=== PATIENT | female | born 1975 ===

== ENCOUNTER 2017-03-03 17:50 | Emergency (ER) | payer BC ==
--- NOTE | 2017-03-03 18:50 | ER NURSING DOCUMENTATION ---
Nurse's Notes [facility] Name:Viviane Higgins Age:41 yrs Sex:Female :1975 Arrival Date:03/03/2017 Time:17:50 Bed1 Private MD: Diagnosis:Hand Laceration-3cm length, Simple Surgical Closure (by MD) Presentation: 03/03 18:00 Presenting complaint: Patient states: pt cut her right hand on a tin can. Transition of st care: Home. Complicating Factors: There are no complicating factors for this patient. Notified ED Physician of Dr. Johnson notified. 18:00 Acuity: DEVON 4 st 18:00 Method Of Arrival: Private Vehicle st Triage Assessment: 18:02 General: Appears in no apparent distress, Behavior is cooperative. Pain: Denies pain. st Cardiovascular: No deficits noted. Respiratory: No deficits noted. GI: No deficits noted. Injury Description: Laceration sustained to dorsum of right hand is superficial, 2.6 to 7.5 cm long, not bleeding. Historical: - Allergies: PENICILLINS; - Home Meds: 1. None - PMHx: None; - PSHx: None; - Tetanus: > 10 years. - Ebola Screening: : Patient denies exposure to infectious person. Patient denies travel to an Ebola-affected area in the 21 days before illness onset. . - Social history: Smoking status: Patient states was never smoker of tobacco. Patient uses alcohol occasionally. Patient/guardian denies using marijuana. Screenin:05 Infectious Disease Risk None. Abuse screen: Denies threats or abuse. Denies injuries st from another. Nutritional screening: No deficits noted. Vital Signs: 18:04 BP 137 / 87; Pulse 88; Resp 16; Temp 99.5; Pulse Ox 94% ; Pain 0/10; st ED Course: 17:52 Patient arrived in ED. ama 18:00 Katrin Ghosh, RN is Primary Nurse. st 18:[address] 18:06 Valuables Remains with patient. Ice pack to injury. st 18:35 Damir Johnson MD is Attending Physician. cd 18:47 Assist Provider Assist provider with laceration repair using sutures. Set up tray. st Performed by Damir Johnson MD. Wound care was dressed with bacitracin Flavioliasher Telantonio. 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 st Exp: 02/12/2018. Lot #: [id number]. } Route: IM; Site: right deltoid; 18:48 Follow up: Response: Medication administered at discharge. Outcome: 18:37 Discharge ordered by . alice 18:48 Discharged to home ambulatory. st 18:48 Condition: improved 18:48 Discharge instructions given to patient, Instructed on discharge instructions, follow up and referral plans. wound care. 18:49 Patient [address] the ED[address] st Signatures: Katrin Ghosh RN Damir Spaulding MD MD cd Averdick, Andrew, Reg Reg ama
--- NOTE | 2017-03-03 18:50 | ER PHYSICIAN DOCUMENTATION ---
Physician Documentation [facility] Name:Viviane Higgins Age:41 yrs Sex:Female :1975 Arrival Date:03/03/2017 Time:17:50 Bed1 Private MD: Damir Walsh Disposition: 03/03 18:50 Chart complete. cd Disposition: 03/03/17 18:37 Discharged to Home/Self Care. Impression: Hand Laceration - 3cm length, Simple Surgical Closure (by MD). - Condition is Good. - Discharge Instructions: LACERATION, Hand. - Medical Reconciliation form form. - Follow up: Emergency Department; When: 03/13/2017; Reason: Continuance of care, Staple/Suture removal. - Problem is new. - Symptoms are resolved. - Notes: Sutures out in 10 days on 03/13/2017. Remember Year 2016...your last Tetanus Booster! HPI: 18:00 This 41 yrs old Unknown Female presents to ER via Private Vehicle with complaints of cd Laceration To Hand - RIGHT. 18:00 The patient has a laceration related to: cut on can occurred at home, and there are no cd complicating factors. The injury was accidental, The laceration(s) is(are) located on the dorsum of right hand. Onset: The symptom(s)/episode began/occurred acutely, just prior to arrival. Tetanus status not UTD. Historical: - Allergies: PENICILLINS; - Home Meds: 1. None - PMHx: None; - PSHx: None; - Tetanus: > 10 years. - Ebola Screening: : Patient denies exposure to infectious person. Patient denies travel to an Ebola-affected area in the 21 days before illness onset. . - Social history: Smoking status: Patient states was never smoker of tobacco. Patient uses alcohol occasionally. Patient/guardian denies using marijuana. ROS: 18:10 Skin: Positive for laceration(s), of the dorsum of right hand. cd 18:10 All other systems are negative. Exam: 18:10 Musculoskeletal/extremity: Extremities: grossly normal except: noted in the dorsum of cd right hand: laceration, ROM: no acute changes, Circulation is intact in all extremities. Sensation intact. Tendon exam: specific tendon testing normal through active and passive range of motion 18:10 Constitutional: The patient appears alert, awake, anxious. 18:10 Skin: Appearance: normal except for affected area, injury, laceration(s), the wound is approximately 3 cm(s), with a depth of 0.5 cm(s), of the dorsum of right hand. Vital Signs: 18:04 BP 137 / 87; Pulse 88; Resp 16; Temp 99.5; Pulse Ox 94% ; Pain 0/10; st Laceration: 18:10 Wound Repair of 3cm ( 1.2in ) subcutaneous laceration to dorsum of right hand. Distal cd neuro/vascular/tendon intact. Anesthesia: Local anesthetic administered with 3 mls of 2% lidocaine. Wound prep: Moderate cleansing with hibiclenz. Skin closed with 10 5-0 Ethilon using Running sutures. Dressed with Bacitracin, 4x4's, Gianfranco. Patient tolerated well. MDM: 18:30 Data reviewed: vital signs, nurses notes, old medical records, and as a result, I will cd discharge patient. Data interpreted: Pulse oximetry: on room air is 94 %. Interpretation: normal. Counseling: I had a detailed discussion with the patient and/or guardian regarding: the historical points, exam findings, and any diagnostic results supporting the discharge/admit diagnosis, the need for outpatient follow up, for a recheck, with the patient's primary care provider, to return to the emergency department if symptoms worsen or persist or if there are any questions or concerns that arise at home. Response to treatment: the patient's symptoms have resolved after treatment, and as a result, I will discharge patient. 18:35 Patient medically screened. 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 st Exp: 02/12/2018. Lot #: [id number]. } Route: IM; Site: right deltoid; 18:48 Follow up: Response: Medication administered at discharge. st Signatures: Katrin Ghosh RN RN st Daley, Chris, MD MD
[2017-03-03] MEDS ORDERED: DIPH,PERTUSS(ACELL),TET VAC/PF 0.5 ML VIAL IM ONE (18:53)
== END 2017-03-03 18:50 | disposition home or self-care (01) ==
LOC: ER 17:50
DX: S61.411A Laceration without foreign body of right hand, initial encounter (principal); W26.8XXA Contact with other sharp object(s), not elsewhere classified, initial encounter; Y92.019 Unspecified place in single-family (private) house as the place of occurrence of the external cause; Z23 Encounter for immunization
CPT/HCPCS: 12002; 90471; 99283